=== PATIENT | female | born 1975 ===

== ENCOUNTER 2018-06-06 14:06 | Inpatient (IN) | payer MEDICAID ==
[~2018-06-06] VITALS: Ht 162.6 cm; Wt 88.8 kg
[2018-06-06 14:28] LABS: BASOPHILS # (AUTO) 0.01 x10^3/uL (0-0.1); BASOPHILS % (AUTO) 0 % (0-1); EOSINOPHILS # (AUTO) 0.08 x10^3/uL (0-0.4); EOSINOPHILS % (AUTO) 1 % (1-7); LYMPHOCYTES % (AUTO) 10 % (22-44); MD NO; MEAN CORPUSCULAR HEMOGLOBIN 30.6 pg (27.0-34.8); MEAN CORPUSCULAR HGB CONC 34.3 g/dL (32.4-35.8); MEAN CORPUSCULAR VOLUME 89.3 fL (80-100); MEAN PLATELET VOLUME 8.7 fL (7.4-10.4); MONOCYTES # (AUTO) 0.64 x10^3/uL (0.2-0.8); MONOCYTES % (AUTO) 11 % (2-9); NEUTROPHILS # (AUTO) 4.65 x10^3/uL (1.8-6.8); NEUTROPHILS % (AUTO) 78 % (42-75); PLATELET COUNT 253 x10^3/uL (130-400); RED BLOOD COUNT 3.84 x10^6/uL (3.82-5.3)
--- NOTE | 2018-06-06 14:29 | NUR ---
Returned from CT at this time.
[2018-06-06 14:36] LABS: INTERNATIONAL NORMALIZED RATIO 0.98 (0.93-1.1); PROTHROMBIN TIME 10.3 Seconds (9.6-11.5)
[2018-06-06] MEDS ORDERED: OMNIPAQUE 350 MG/ML, 100ML BOTTLE ONE (14:37)
[2018-06-06] MEDS ORDERED: LISI-170 PO (14:38)
[2018-06-06] MEDS ORDERED: GLYB5TAB3 PO (14:38)
[2018-06-06] MEDS ORDERED: PREN1TAB60 PO (14:38)
[2018-06-06] MEDS ORDERED: METF500T27 PO (14:38)
--- NOTE | 2018-06-06 14:38 | NUR ---
Patient brought in by EMS after calling for worsening generalized weakness and body aches beginning at approximately 0900 this morning. On scene patient reportedly had left sided weakness and slurred speech. Upon arrival patient is without deficits, patient is slow to respond to questions but is oriented x4 responding appropriately to questions. Blood glucose 395mg/dL prior to arrival per EMS, IV started prior to arrival. Patient states yesterday she experienced a cough, sore throat, and body aches but symptoms worsened this morning. Patient is drowsy but appropriate, continuous blood pressure, SPO2 and cardiac monitoring in place.
[2018-06-06] MEDS ORDERED: ACETAMINOPHEN 500 MG TABLET ONE (14:57)
[2018-06-06] MEDS ORDERED: ACETAMINOPHEN 500 MG TABLET PO ONE (15:00)
[2018-06-06] MEDS ORDERED: SODIUM CHLORIDE 0.9% 1,000ML IVBOLUS ONE (15:00)
[2018-06-06 15:04] LABS: MICROSCOPIC AUTO
[2018-06-06 15:05] LABS: CULTURE INDICATED? YES
--- NOTE | 2018-06-06 15:23 | NUR ---
Patient resting in [facility] with eyes closed, no acute distress witnessed at this time. Dr. Torres notified of patient's blood pressure. Patient states she has not yet taken her lisinopril today, Dr. Torres aware.
[2018-06-06] MEDS ORDERED: ENALAPRILAT 1.25 MG/ML, 2ML ONE (15:24)
[2018-06-06] MEDS ORDERED: ENALAPRILAT 1.25 MG/ML, 2ML IV ONE (15:30)
--- NOTE | 2018-06-06 15:51 | NUR ---
Patient's mom Lima called and left phone number for patient to call when she is able: [phone]; patient notified.
[2018-06-06] MEDS ORDERED: CEFTRIAXONE PMX 1GM/50ML 50 ML IVPB ONE (16:00)
[2018-06-06] MEDS ORDERED: CEFTRIAXONE PMX 1GM/50ML 50 ML ONE (16:10)
--- NOTE | 2018-06-06 16:37 | NUR ---
Report to DUKE Tejada
--- NOTE | 2018-06-06 16:43 | NUR ---
RECEIVED REPORT FROM [facility]. PT RESTING IN BED. PT AWAKENS WITH VERBAL STIMULI. PT VERY DROWSY.
[2018-06-06 16:54] LABS: RAPID INFLUENZA A Negative (Negative); RAPID INFLUENZA B Negative (Negative)
[2018-06-06] MEDS: INSULIN LISPRO 100 UNITS/ML, PEN SQ-INSULIN SCH ×2 (18:00→21:30)
[2018-06-06] MEDS ORDERED: ONDANSETRON ODT 4 MG PO PRN (18:00)
[2018-06-06] MEDS ORDERED: ONDANSETRON 2MG/ML, 2ML IVPush PRN (18:00)
--- NOTE | 2018-06-06 18:03 | NUR ---
LAB INTO DRAW ABGS. ARORA AWARE OF 102.7 TEMP
[2018-06-06] MEDS ORDERED: ACETAMINOPHEN 325 MG TABLET ONE (18:14)
[2018-06-06] MEDS ORDERED: IBUPROFEN 600 MG TABLET ONE (18:26)
[2018-06-06] MEDS ORDERED: IBUPROFEN 200 MG TABLET PO ONE (18:30)
[2018-06-06] MEDS ORDERED: IBUPROFEN 600 MG TABLET PO ONE (19:00)
[2018-06-06] MEDS ORDERED: ALBUTEROL SULFATE 2.5 MG/3 ML NPPB PRN (19:30)
[2018-06-06 20:36] VITALS: BP 144/89
[2018-06-06] MEDS: metFORMIN XR 500 MG TAB.ER.24H PO SCH (20:49)
[2018-06-06] MEDS: CARVEDILOL 6.25 MG TABLET PO SCH (20:49)
[2018-06-06] MEDS: HEPARIN 5,000 UNITS/ML, 1ML SQ SCH (20:50)
[2018-06-06] MEDS: NICOTINE 14MG/24 HR PATCH.TD24 TD SCH (20:50)
[2018-06-06] MEDS: SODIUM CHLORIDE 0.9% 1,000 ML IV SCH (20:52)
[2018-06-06 21:00] VITALS: BP 144/89
[2018-06-07] MEDS: ACETAMINOPHEN 325 MG TABLET PO PRN ×3 (01:52→23:35)
[2018-06-07 02:20] VITALS: BP 137/88
[2018-06-07 04:57] VITALS: BP 129/86
[2018-06-07] MEDS: CARVEDILOL 6.25 MG TABLET PO SCH ×2 (04:59→17:34)
[2018-06-07] MEDS: CEFTRIAXONE PMX 2GM/50ML 50 ML IV SCH (04:59)
[2018-06-07] MEDS: HEPARIN 5,000 UNITS/ML, 1ML SQ SCH ×3 (05:00→19:59)
[2018-06-07 05:54] LABS: BASOPHILS # (AUTO) 0.02 x10^3/uL (0-0.1); BASOPHILS % (AUTO) 0 % (0-1); EOSINOPHILS # (AUTO) 0.07 x10^3/uL (0-0.4); EOSINOPHILS % (AUTO) 1 % (1-7); LYMPHOCYTES # (AUTO) 1.27 x10^3/uL (1-3.4); LYMPHOCYTES % (AUTO) 25 % (22-44); MD NO; MEAN CORPUSCULAR HEMOGLOBIN 30.3 pg (27.0-34.8); MEAN CORPUSCULAR HGB CONC 33.8 g/dL (32.4-35.8); MEAN CORPUSCULAR VOLUME 89.6 fL (80-100); MEAN PLATELET VOLUME 8.5 fL (7.4-10.4); MONOCYTES % (AUTO) 14 % (2-9); NEUTROPHILS # (AUTO) 3.07 x10^3/uL (1.8-6.8); NEUTROPHILS % (AUTO) 60 % (42-75); PLATELET COUNT 224 x10^3/uL (130-400); RED BLOOD COUNT 3.52 x10^6/uL (3.82-5.3); RED CELL DISTRIBUTION WIDTH 13.8 % (9.6-15.2)
[2018-06-07 06:06] LABS: ANION GAP 7 mmol/L (5-15); CALCIUM 7.8 mg/dL (8.5-10.1); CHLORIDE 104 mmol/L (98-107); CREATININE 0.91 mg/dL (0.55-1.02)
[2018-06-07 07:12] VITALS: BP 118/76
[2018-06-07] MEDS: PRENATAL VIT/IRON/FA 1 EACH TABLET PO SCH (08:28)
[2018-06-07] MEDS: GlyBURIDE 5 MG TABLET PO SCH (08:28)
[2018-06-07] MEDS: metFORMIN XR 500 MG TAB.ER.24H PO SCH ×2 (08:28→20:09)
[2018-06-07] MEDS: SODIUM CHLORIDE 0.9% 1,000 ML IV SCH ×2 (08:29→22:12)
[2018-06-07] MEDS: LISINOPRIL 10 MG TABLET PO SCH (08:29)
[2018-06-07] MEDS: KETOROLAC 30 MG/1 ML IVPush PRN ×2 (08:45→16:24)
[2018-06-07] MEDS: INSULIN LISPRO 100 UNITS/ML, PEN SQ-INSULIN SCH ×4 (08:45→20:10)
[2018-06-07 12:35] VITALS: BP 133/84
[2018-06-07 17:32] VITALS: BP 127/87
[2018-06-07] MEDS: NICOTINE 14MG/24 HR PATCH.TD24 TD SCH (17:34)
[2018-06-07 19:20] VITALS: BP 130/84
[2018-06-08 01:21] VITALS: BP 135/88
[2018-06-08 04:59] VITALS: BP 135/84
[2018-06-08] MEDS: HEPARIN 5,000 UNITS/ML, 1ML SQ SCH ×2 (05:00→13:00)
[2018-06-08] MEDS: CEFTRIAXONE PMX 2GM/50ML 50 ML IV SCH (05:01)
[2018-06-08] MEDS: CARVEDILOL 6.25 MG TABLET PO SCH (05:01)
[2018-06-08] MEDS: INSULIN LISPRO 100 UNITS/ML, PEN SQ-INSULIN SCH ×2 (07:00→11:00)
[2018-06-08 07:55] VITALS: BP 123/81
[2018-06-08] MEDS: ACETAMINOPHEN 325 MG TABLET PO PRN (08:12)
[2018-06-08] MEDS: metFORMIN XR 500 MG TAB.ER.24H PO SCH (08:12)
[2018-06-08] MEDS: GlyBURIDE 5 MG TABLET PO SCH (08:12)
[2018-06-08] MEDS: LISINOPRIL 10 MG TABLET PO SCH (08:12)
[2018-06-08] MEDS: PRENATAL VIT/IRON/FA 1 EACH TABLET PO SCH (08:12)
[2018-06-08] MEDS ORDERED: GLYB5TAB3 PO (13:41)
[2018-06-08] MEDS ORDERED: CARV6.2512 PO (13:41)
[2018-06-08] MEDS ORDERED: METF500T27 PO (13:41)
[2018-06-08] MEDS ORDERED: LISI-170 PO (13:41)
[2018-06-08] MEDS ORDERED: ACET325T14 PO (13:41)
[2018-06-08] MEDS ORDERED: CEPH-368 PO (13:41)
[2018-06-08 14:54] VITALS: BP 144/89
== END 2018-06-08 15:37 | disposition home or self-care (01) | DRG 689 ==
LOC: ED 17:49 → EDIP 17:50 → 3NE 19:15 → DCLOUNGE 06-08 15:24
PROVIDERS: ADMIT Internal Medicine; ATTEND Internal Medicine
PROC: B3151ZZ Fluoroscopy of Bilateral Common Carotid Arteries using Low Osmolar Contrast (ICD-10-PCS; principal; 2018-06-06)
PROC: B3181ZZ Fluoroscopy of Bilateral Internal Carotid Arteries using Low Osmolar Contrast (ICD-10-PCS; 2018-06-06)
PROC: B3191ZZ Fluoroscopy of Right External Carotid Artery using Low Osmolar Contrast (ICD-10-PCS; 2018-06-06)
DX: N30.90 Cystitis, unspecified without hematuria (principal); G93.41 Metabolic encephalopathy; E87.1 Hypo-osmolality and hyponatremia; R78.81 Bacteremia; E66.9 Obesity, unspecified; G47.00 Insomnia, unspecified; I10 Essential (primary) hypertension; I65.22 Occlusion and stenosis of left carotid artery; E11.9 Type 2 diabetes mellitus without complications; R00.0 Tachycardia, unspecified; B96.20 Unspecified Escherichia coli [E. coli] as the cause of diseases classified elsewhere; G47.10 Hypersomnia, unspecified; R51 Headache; Z16.19 Resistance to other specified beta lactam antibiotics; Z91.14 Patient's other noncompliance with medication regimen; Z68.33 Body mass index [BMI] 33.0-33.9, adult; Z90.49 Acquired absence of other specified parts of digestive tract; Z88.1 Allergy status to other antibiotic agents
CPT/HCPCS: 36415; 36600; 84145; 87400; 99285; J7613; 70450; 70496; 70498; 71045; 80047; 80048; 81001; 82803; 82962; 83036; 83605; 84702; 85025; 85610; 85730; 87040; 87077; 87086; 87186; 93005; 94640; 96365; G0378; J0696; J1644; J1885; Q9967; J1815; J7030

== ENCOUNTER 2019-05-17 07:14 | Emergency (ER) | payer MEDICAID ==
[~2019-05-17] VITALS: Ht 162.6 cm; Wt 78.0 kg
[~2019-05-17 07:14] MED LIST: ACET325T14 PO; CARV6.2512 PO; CEPH-368 PO; GLYB5TAB3 PO; LISI-170 PO; METF500T27 PO; PREN1TAB60 PO
--- NOTE | 2019-05-17 07:16 | NUR ---
PATIENT ARRIVES WITH [facility]. TWO DAYS AGO SHE FELT CONGESTED, FREQ COUGH. YESTERDAY SHE FELT SHAKING, BODY ACHES, NIGHT SWEATS. RAILS UP, GOWNED, ON MONITOR. AOX4.
--- NOTE | 2019-05-17 07:25 | NUR ---
PATIENT STATES SHE IS WAS TAKING GLIPIZIDE AND METFORMIN BUT STOPPED TAKING TWO MONTHES AGO FOR DIET / EXERCISE
--- NOTE | 2019-05-17 07:38 | NUR ---
SWABBED FOR INFLUENZA AND AWAITING XRAY
[2019-05-17] MEDS ORDERED: IBUPROFEN 600 MG TABLET PO ONE (08:00)
[2019-05-17 08:06] LABS: BASOPHILS # (AUTO) 0.02 x10^3/uL (0-0.1); BASOPHILS % (AUTO) 0 % (0-1); EOSINOPHILS # (AUTO) 0.01 x10^3/uL (0-0.4); EOSINOPHILS % (AUTO) 0 % (1-7); LYMPHOCYTES % (AUTO) 13 % (22-44); MD NO; MEAN CORPUSCULAR HEMOGLOBIN 30.1 pg (27.0-34.8); MEAN CORPUSCULAR HGB CONC 33.3 g/dL (32.4-35.8); MEAN CORPUSCULAR VOLUME 90.4 fL (80-100); MEAN PLATELET VOLUME 8.4 fL (7.4-10.4); MONOCYTES # (AUTO) 0.87 x10^3/uL (0.2-0.8); MONOCYTES % (AUTO) 7 % (2-9); NEUTROPHILS # (AUTO) 10.63 x10^3/uL (1.8-6.8); NEUTROPHILS % (AUTO) 80 % (42-75); PLATELET COUNT 262 x10^3/uL (130-400); RED BLOOD COUNT 4.42 x10^6/uL (3.82-5.3); RED CELL DISTRIBUTION WIDTH 13.3 % (9.6-15.2)
[2019-05-17] MEDS ORDERED: IBUPROFEN 600 MG TABLET ONE (08:10)
[2019-05-17 08:16] LABS: ALBUMIN 2.5 g/dL (3.4-5.0); ANION GAP 8 mmol/L (5-15); CALCIUM 8.7 mg/dL (8.5-10.1); CHLORIDE 95 mmol/L (98-107)
[2019-05-17 08:18] LABS: CREATININE 1.36 mg/dL (0.55-1.02)
[2019-05-17 08:28] LABS: RAPID INFLUENZA A Negative (Negative); RAPID INFLUENZA B Negative (Negative)
--- NOTE | 2019-05-17 08:28 | NUR ---
URINE SENT CLEAN CATCH, YELLOW CLEAR. PATIENT IV IN PROGRESS, IN BED ON MONITOR, RAILS UP.
[2019-05-17] MEDS ORDERED: INSULIN REGULAR 100 UNITS/ML, 3ML VIAL IVPush ONE (08:30)
[2019-05-17] MEDS ORDERED: SODIUM CHLORIDE 0.9% 1,000ML IVBOLUS ONE (08:30)
[2019-05-17] MEDS ORDERED: SODIUM CHLORIDE FLUSH 10ML SYR IVF ONE (08:30)
[2019-05-17 08:52] LABS: CULTURE INDICATED? YES; HCG UR SG 1.037 (1.003-1.030); MICROSCOPIC AUTO
[2019-05-17] MEDS ORDERED: INSULIN SINGLE DOSE, ER ONE (09:18)
[2019-05-17 09:50] LABS: ACETONE, SERUM Negative (Negative)
--- NOTE | 2019-05-17 09:51 | NUR ---
PATIENT RESTING QUIETLY. VSS. ON MONITOR, RAILS UP. AWAITING ED WORKUP. GETTING FLUIDS
[2019-05-17 10:36] VITALS: BP 140/78
--- NOTE | 2019-05-17 10:37 | NUR ---
FSBS 271. PATIENT IS ANGRY AND DEMANDING TO LEAVE TO GO TO CLINIC. LISTENED TO HER, SHE IS ANGRY BECAUSE SHE IS CERTAIN SHE HAS PNA AND STATES SHE NEEDS TO GO TO CLINIC TO BE TREATED. TRYING TO GO OVER DISCHARGE INSTRUCTIONS AND MEDICATIOINS. AIDET. PATIENT ANGRY, AGGRESSIVE AND TOSSING THINGS OFF AND TO FLOOR. DISCHARGE REVIEWED SHE WILL ALLOW, GOOD ON FEET
--- NOTE | 2019-05-17 10:44 | NUR ---
PATIENT STORMED OUT OF ER STATING SHE DOESN'T WANT HER DC PAPERWORK OR RX SHE WANTS TO GO TO CLINIC,. 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
--- NOTE | 2019-05-17 11:28 | NUR ---
Aidan RN: I attempted to contact this pt at home phone number listed in chart, pt no longer lives at this residence Addendum: 05/17/19 at 1133 by ROMERO Aidan RN: I attempted to contact this pt at home phone number listed in chart in order to request that this pt return to [facility] her written prescriptions, pt no longer lives at this residence.
== END 2019-05-17 10:46 | disposition home or self-care (01) ==
LOC: ED 10:40
DX: J00 Acute nasopharyngitis [common cold] (principal); R06.00 Dyspnea, unspecified; N30.00 Acute cystitis without hematuria; E11.65 Type 2 diabetes mellitus with hyperglycemia; R50.9 Fever, unspecified; I10 Essential (primary) hypertension
CPT/HCPCS: 36415; 71046; 80048; 81001; 81025; 82010; 82040; 82800; 82962; 83605; 85025; 87086; 87400; 96361; 96374; 99284; J1815; J7030; 87077